=== PATIENT | female | born 1945 | race Caucasian/White ===

== ENCOUNTER → 2020-04-18 | Outpatient (CLI) | payer MEDICARE, OTHER ==
[2020-04-18 12:57] LABS: CALCIUM 9.8 mg/dL (8.5-10.1); CREATININE 1.2 mg/dL (0.6-1.0); POTASSIUM 5.1 mmol/L (3.5-5.1)
[2020-04-18 13:33] LABS: BACTERIA,URINE 0 /HPF (0-FEW); BILIRUBIN,URINE NEG (NEG); CLARITY,URINE CLEAR; COLOR,URINE YELLOW; GLUCOSE,URINE NEG (NEG); NITRITE,URINE NEG (NEG); RBC,URINE 0 /HPF (0-2); SQUAMOUS EPITHELIAL CELL,UR MANY /LPF; WBC,URINE OCC /HPF (0-4)
[2020-04-18 13:34] LABS: BASO % 1 % (0-3); EOS % 1 % (0-3); HEMATOCRIT 40.7 % (36.0-47.0); HEMOGLOBIN 12.4 g/dL (12.0-15.5); LYMPH # 2.3 x10^3/uL (1.0-4.8); LYMPH % 28 % (24-48); MEAN CORPUSCULAR HEMOGLOBIN 21 pg (25-35); MEAN CORPUSCULAR HGB CONC 30 g/dL (31-37); MEAN CORPUSCULAR VOLUME 69 fL (79-100); MONO # 0.4 x10^3/uL (0.0-1.1); MONO % 5 % (0-9); NEUT # 5.3 x10^3uL (1.8-7.7); NEUT % 66 % (31-73); PLATELET COUNT 285 x10^3/uL (140-400); RED BLOOD COUNT 5.91 x10^6/uL (3.50-5.40); RED CELL DISTRIBUTION WIDTH 15.8 % (11.5-14.5); WHITE BLOOD COUNT 8.1 x10^3/uL (4.0-11.0)
[2020-04-18 14:16] LABS: ANISOCYTOSIS SLIGHT; HYPOCHROMIA SLIGHT; MICROCYTOSIS PRESENT; PLT ESTIMATE ADEQUATE (ADEQUATE)
== END ==
LOC: LAB 11:39
PROVIDERS: ATTEND Anesthesiology Pain Medicine
DX: Z01.812 Encounter for preprocedural laboratory examination (principal); Z20.828 Contact with and (suspected) exposure to other viral communicable diseases
CPT/HCPCS: 80048; 81001; 85025; 85610; 87641; U0003

== ENCOUNTER → 2020-12-17 | Outpatient (CLI) | payer MEDICARE, OTHER ==
--- NOTE | 2020-12-17 10:17 | RAD ---
EXAM: CT chest low dose lung cancer screening. HISTORY: Nicotine dependence. TECHNIQUE: Computed tomographic images of the chest were obtained without contrast. Multiplanar refor matting was performed. *One or more of the following individualized dose reduction techniques were utilized for this examina tion: 1. Automated exposure control. 2. Adjustment of the mA and/or kV according to patient size. 3. Use of iterative reconstruction technique. COMPARISON: 02/04/2020. FINDINGS: There is no pneumothorax or pleural effusion. There is bilateral posterior dependent and ba silar atelectasis. There is cardiomegaly. There is evidence of prior CABG. There is no lymphadenopath y. There is a 4 mm nodule within the lateral right upper lobe (series 6, image 111). There is a 2 mm ple ural-based nodule within the lateral right upper lobe (series 6, image 100). There are few additional faint tiny groundglass peripheral and pleural-based nodular opacities which are likely due to subseg mental atelectasis. There is no acute finding involving the upper abdomen. The gallbladder is surgically absent. There is degenerative change involving the spine. There is thoracic kyphoscoliosis and mild multilevel listhe sis. There is a mild chronic appearing wedge compression deformity at T10. There are dorsal column st imulator leads terminating at T8. IMPRESSION: 1. 4 mm and 2 mm right upper lobe pulmonary nodules. Lung RADS category 2: 12 month follow-up is marco mmended. 2. Cardiomegaly and findings consistent with prior CABG. 3. Posterior dependent and lower lobe predominant atelectasis. There is no acute thoracic finding. Electronically signed by: Tamara Lott MD (12/17/2020 10:15 AM) [id number]
--- NOTE | 2020-12-24 09:50 | RAD ---
PROCEDURE: MG 2D BILAT SCREENING HISTORY: The patient is 75 years old and is seen for Reason: SCREENING / Spl. Instructions: / Histor y: . COMPARISON: May 27, 2016 TECHNIQUE: CC and MLO views of both breasts were obtained. Images were processed by the [employer] computer-aided detection system. DENSITY: There are scattered fibroglandular densities. FINDINGS: No developing mass, suspicious calcifications or architectural distortion. Benign-appear ing calcifications bilaterally. IMPRESSION: Negative. No evidence of malignancy. Recommend annual screening mammograms per [employer] [place] [employer] guidelines. She will be due in one year. BI-RADS category 2 Benign Patient entered into a reminder system for annual screening mammogram. Electronically signed by: Suleiman Sparks DO (12/24/2020 9:47 AM) [id number]
== END ==
LOC: MAMMO 08:49
PROVIDERS: ATTEND Family Medicine
DX: Z12.31 Encounter for screening mammogram for malignant neoplasm of breast (principal); M81.0 Age-related osteoporosis without current pathological fracture; R91.1 Solitary pulmonary nodule; I51.7 Cardiomegaly; F17.200 Nicotine dependence, unspecified, uncomplicated; Z90.11 Acquired absence of right breast and nipple
CPT/HCPCS: 71271; 77067

== ENCOUNTER → 2021-01-21 | Outpatient (CLI) | payer MEDICARE, OTHER ==
--- NOTE | 2021-01-21 11:34 | RAD ---
EXAM: DUAL ENERGY X-RAY ABSORPTIOMETRY (DEXA). HISTORY: Postmenopausal screening. FINDINGS: The lowest measured T-score is -2.5 in the right hip, based on a bone mineral density of 0. 643 g/cm^2. Refer to the worksheets for full detail. No comparison examinations are available. IMPRESSION: 1. Osteoporosis. Bone mineral density yields a T-score of -2.5 or less. Fracture risk is high. 2. FRAX report: Not calculated. METHODOLOGY: Dual energy x-ray absorptiometry was performed to measure bone mineral density. The foll owing analysis is based on the 2019 Official Positions of the International Society for Clinical Dens itometry: Measurements of the hips and the average of L1-L4 are preferred. When the spine and/or hip cannot be feasibly measured or interpreted, or in the setting of hyperparathyroidism, distal radial bone minera l density may be measured. The lumbar spine T-score is based on the average bone mineral density of L1-L4. In the setting of art ifact or anatomic abnormality, some lumbar levels may be excluded, and the remaining levels used for calculation. A single lumbar level is not used for diagnosis, and if only a single level is available for assessment, another anatomic site will be used to assign a diagnosis. The hip T-score is based on the bone mineral density measurement of the femoral neck or total proxima l femur of either side, whichever is lowest. Bilateral mean values are not used for diagnosis. The forearm T-score is derived from 33% of the distal radius of the nondominant forearm. Electronically signed by: Tamara Lott MD (01/21/2021 11:31 AM) [id number]
== END ==
LOC: DXRAD 10:39
PROVIDERS: ATTEND Family Medicine
DX: M81.0 Age-related osteoporosis without current pathological fracture (principal)
CPT/HCPCS: 77080

== ENCOUNTER → 2021-05-28 | Outpatient (CLI) | payer MEDICARE, OTHER ==
[~2021-05-28] MED LIST: IOHEXOL 350 MG/ML 100 ML VIAL. IV ONE
[2021-05-28 16:35] LABS: CALCIUM 8.8 mg/dL (8.5-10.1); GFR 54.2; POTASSIUM 5.5 mmol/L (3.5-5.1)
--- NOTE | 2021-05-28 17:12 | RAD ---
EXAMINATION: CT Pulmonary Angiogram INDICATION: Reason: CHEST PAIN ON EXERTION, HX OF PE 9 YRS AGO / Spl. Instructions: OMNI 350 100 ML / History: COMPARISON: CT chest from 12/17/2020 TECHNIQUE: Using helical technique, CT data from the thoracic inlet through the upper abdomen was obt ained during rapid IV contrast infusion. The examination was timed to the pulmonary arterial system t o generate a CT angiographic study. 3D MIPS, sagittal and coronal reformats were generated. FINDINGS: Vascular: The study is diagnostic to the level of the subsegmental pulmonary arteries. Opacification of the pul monary arteries. Pulmonary arteries: No evidence of acute or chronic pulmonary embolism. The pulmonary trunk is dilate d up to 3.2 cm maximal diameter, this can be seen in setting of pulmonary arterial hypertension. Thoracic aorta: Tortuous with scattered atherosclerotic disease. Coronary arteries: Normal origins. Severe calcified coronary atherosclerosis. No evidence of prior CA BG Systemic veins: Within normal limits. Heart: Heart is enlarged. Effusion. Chest: Lungs/Pleura: There is a subtle mosaic attenuation of the pulmonary parenchyma mild dependent groundg lass opacities suggestive of subsegmental atelectasis. Similar subtle groundglass opacities in the up per lobe. Additional areas of subsegmental atelectasis in the right middle lobe and lingula. Central airway is patent.. No suspicious pulmonary nodules are visualized. No pleural effusion or focal pleu ral lesion. Mediastinum: No pathologic mediastinal or hilar adenopathy thyroid gland is not well visualized. Mild distal esophageal wall thickening may relate to reflux dysphagia process. Axilla/Soft Tissue: No supraclavicular or axillary adenopathy. Regional soft tissues are within lisbeth l limits. Upper abdomen: The visualized upper abdomen appears unremarkable. Gallbladder surgically absent. Bones: No evidence of acute fractures or aggressive osseous lesions. Multilevel degenerative changes of the thoracolumbar spine. Thoracic kyphoscoliosis and mild multilevel listhesis. Dorsal column stim ulator leads terminating at the T8 level. IMPRESSION: 1. No evidence of pulmonary arterial thromboembolic disease. 2. Subtle mosaic attenuation of the pulmonary parenchyma suggestive of small airway disease 3.Redemonstrated cardiomegaly and findings consistent with prior CABG. PRQS compliance statement - One or more of the following individualized dose reduction techniques wer e utilized for this study: 1. Automated exposure control 2. Adjustment of the mA and/or kV according to patient size 3. Use of iterative reconstruction technique Electronically signed by: Miguel Marcelino DO (05/28/2021 5:10 PM) [facility]
== END ==
LOC: RAD 15:58
PROVIDERS: ATTEND Family Medicine
DX: J98.11 Atelectasis (principal); R07.1 Chest pain on breathing; I25.10 Atherosclerotic heart disease of native coronary artery without angina pectoris; M41.84 Other forms of scoliosis, thoracic region; I51.7 Cardiomegaly
CPT/HCPCS: 36415; 71275; 80048; Q9967